=== PATIENT | female | born 1950 | race Caucasian/White ===

== ENCOUNTER 2021-07-05 15:09 | Emergency (ER) | payer MEDICARE ==
--- NOTE | 2021-07-05 15:46 | EDM.PDOC ---
ED HPI GENERAL MEDICAL PROBLEM - General Chief Complaint: Respiratory Problem Stated Complaint: cough, sob Time Seen by Provider: 07/05/21 15:30 Source of Information: Reports: Patient, RN Notes Reviewed - History of Present Illness INITIAL COMMENTS - FREE TEXT/NARRATIVE: pt arrived with a cough and sob. She has been fatiqued. She may have had a contact with covid. Onset: Gradual, Other (last 5-6 days. ) Duration: Hour(s): Location: Reports: Chest, Generalized Associated Symptoms: Reports: Cough, Fever/Chills, Shortness of Breath, Weakness - Related Data Allergies Allergy/AdvReac Type Severity Reaction Status Date / Time No Known Allergies Allergy Verified 07/05/21 15:55 ED ROS GENERAL - Review of Systems Review Of Systems: See Below Constitutional: Reports: Fever, Chills, Malaise HEENT: Reports: No Symptoms Respiratory: Reports: Shortness of Breath, Cough Cardiovascular: Reports: No Symptoms Endocrine: Reports: No Symptoms GI/Abdominal: Reports: No Symptoms : Reports: No Symptoms Musculoskeletal: Reports: No Symptoms Skin: Reports: No Symptoms ED EXAM, GENERAL - Physical Exam Exam: See Below Free Text/Narrative:: pt has had increased sob. She has had a cough and is fatiqued. Exam Limited By: No Limitations General Appearance: Alert, No Apparent Distress, Other (o2 sats are at 96) Ears: Normal TMs Nose: Normal Inspection Throat/Mouth: Normal Inspection Head: Atraumatic Neck: Normal Inspection Respiratory/Chest: No Respiratory Distress Cardiovascular: Regular Rate, Rhythm GI/Abdominal: Soft, Non-Tender (Female) Exam: Deferred Rectal (Female) Exam: Deferred Back Exam: Normal Inspection Extremities: Normal Inspection Neurological: Alert, Oriented, Normal Cognition Course - Vital Signs Last Recorded V/S: Last Vital Signs Temp 36.2 C 07/05/21 19:02 Pulse 87 07/05/21 19:02 Resp 18 07/05/21 19:02 BP 102/69 07/05/21 19:02 Pulse Ox 95 07/05/21 19:02 - Orders/Labs/Meds Labs: Laboratory Tests 07/05/21 07/05/21 07/05/21 Range/Units 15:48 16:07 16:07 WBC 3.3 L (4.5-11.0) K/uL RBC 5.12 (3.30-5.50) M/uL Hgb 14.1 (12.0-15.0) g/dL Hct 42.0 (36.0-48.0) % MCV 82 (80-98) fL MCH 28 (27-31) pg MCHC 34 (32-36) % Plt Count 76 L (150-400) K/uL Neut % (Auto) 73.6 H (36-66) % Lymph % (Auto) 16.5 L (24-44) % [place] % (Auto) 9.3 H (2-6) % Eos % (Auto) 0.0 L (2-4) % Baso % (Auto) 0.6 (0-1) % Sodium 136 L (140-148) mmol/L Potassium 3.8 (3.6-5.2) mmol/L Chloride 99 L (100-108) mmol/L Carbon Dioxide 32 (21-32) mmol/L Anion Gap 8.8 (5.0-14.0) mmol/L BUN 21 H (7-18) mg/dL Creatinine 1.1 H (0.6-1.0) mg/dL Est Cr Clr Drug Dosing 40.49 mL/min Estimated GFR (MDRD) 49 L (>60) Glucose 111 H (74-106) mg/dL Calcium 8.1 L (8.5-10.1) mg/dL Total Bilirubin 1.1 H (0.2-1.0) mg/dL AST 72 H (15-37) U/L ALT 46 (12-78) U/L Alkaline Phosphatase 57 (46-116) U/L Total Protein 6.2 L (6.4-8.2) g/dL Albumin 3.2 L (3.4-5.0) g/dL Globulin 3.0 (2.3-3.5) g/dL Albumin/Globulin Ratio 1.1 L (1.2-2.2) SARS-CoV-2 RNA (RODOLFO) Positive H (NEGATIVE) Meds: Medications Discontinued Medications Generic Name Dose Route Start Last Admin Trade Name Freq PRN Reason Stop Dose Admin Acetaminophen 650 mg 07/05/21 18:00 Acetaminophen 325 Mg Tab PO ONETIME PRN HEADACHE,CHILLS Diphenhydramine HCl 50 mg 07/05/21 18:00 Diphenhydramine 50 Mg/Ml Sdv IM ONETIME PRN ALLERGIC RXN Epinephrine HCl 0.3 mg 07/05/21 18:00 Epinephrine 1 Mg/Ml Sdv IM ONETIME PRN ALLERGIC RXN Methylprednisolone Sodium Succinate 125 mg 07/05/21 18:00 Methylprednisolone Sodium Succinate 125 Mg/2 Ml Sdv IM ONETIME PRN ALLERGIC RXN - Re-Assessments/Exams Free Text/Narrative Re-Assessment/Exam: 07/05/21 17:28 pt had early infiltrates on her chest xray, Her covid test was positive. Her wbc is in the 3000 range. She is running a fever. low grade. The situation was discussed with the pt and she will be given monoclonal therapy. Departure - Departure Time of Disposition: 19:10 Disposition: Home, Self-Care 01 Condition: Fair Clinical Impression: COVID-19 - Discharge Information Instructions: COVID-19 Frequently Asked Questions, COVID-19 Vaccine Information, What You Should Know About COVID-19 to Protect Yourself and Others - CDC, Symptoms of COVID-19 - CDC (11/19/2020) Referrals: Jam David MD [Primary Care Provider] - Forms: ED Department Discharge
[2021-07-05] MEDS ORDERED: Acetaminophen 325 MG Tab PO PRN (18:00)
[2021-07-05] MEDS ORDERED: diphenhydrAMINE 50 MG/ML SDV IM PRN (18:00)
[2021-07-05] MEDS ORDERED: methylPREDNISolone Sodium Succinate 125 MG/2 ML SDV IM PRN (18:00)
[2021-07-05] MEDS ORDERED: EPINEPHrine 1 MG/ML SDV IM PRN (18:00)
--- NOTE | 2021-07-08 09:20 | CR ---
CHEST: Portable 07/05/2021 at 5:16 PM CLINICAL HISTORY:SOB COMPARISON:None FINDINGS: There is patchy density in both lower lung valle. Heart size and pulmonary vascularity are normal. Prescribed aorta. Impression: Patchy bilateral lower lobe pneumonic infiltrates.
== END 2021-07-05 19:07 | disposition home or self-care (01) ==
LOC: JP.ED 15:09
DX: U07.1 COVID-19 (principal)
CPT/HCPCS: 36415; 71045; 80053; 85025; 99285; M0243; Q0243; U0002